=== PATIENT | female | born 1930 | race Caucasian/White ===

== ENCOUNTER 2020-02-14 21:24 | Inpatient (IN) ==
[2020-02-14] MEDS ORDERED: DEXTROSE 50% 50 ML VIAL IV PRN (21:52)
[2020-02-14] MEDS ORDERED: MAGNESIUM SULFATE 2 GM/50 ML BAG IV PRN (21:52)
[2020-02-14] MEDS ORDERED: ONDANSETRON 4 MG/2 ML VIAL IV PRN (21:52)
[2020-02-14] MEDS ORDERED: MELATONIN 3 MG TABLET PO PRN (21:52)
[2020-02-14] MEDS ORDERED: HYDROmorphone 0.5 MG/0.5 ML SYRINGE IV PRN (21:52)
[2020-02-14] MEDS ORDERED: hydrALAZINE 20 MG/ML VIAL IV PRN (21:52)
[2020-02-14] MEDS ORDERED: METOPROLOL TARTRATE 5 MG/5 ML VIAL IV PRN (21:52)
[2020-02-14] MEDS ORDERED: ACETAMINOPHEN 650 MG/65 ML BOTTLE IV PRN (21:52)
[2020-02-14] MEDS ORDERED: POTASSIUM CHLORIDE 20 MEQ PACKET PO PRN (21:52)
[2020-02-14] MEDS ORDERED: ACETAMINOPHEN 325 MG TABLET PO PRN (21:52)
[2020-02-14] MEDS ORDERED: BISACODYL 10 MG SUPP.RECT PR PRN (21:52)
[2020-02-14] MEDS ORDERED: POLYETHYLENE GLYCOL 3350 17 GM PACKET PO PRN (21:52)
[2020-02-14] MEDS ORDERED: ONDANSETRON 4 MG ODT TABLET SL PRN (21:52)
[2020-02-14] MEDS ORDERED: DEXTROSE 31 GM ORAL.SUSP PO PRN (21:52)
--- NOTE | 2020-02-14 21:56 | Internal Med History&Physical ---
HPI History of Present Illness Patient information: Note initiated : 02/14/20 at 9:56 pm Service Date, if different from initiated Date: [] Patient: Fiorella Ardon a 89 y/o F admitted on for Fall. Chief Complaint: Fall/hip fracture History of present illness: Ms. Ardon is a 89 year old F with a history of CVA with right-sided hemiparesis and currently residing at [facility]. She also carries a history of DM type II/HTN/hypothyroidism. She sustained a ground-level non- syncopal fall last evening while she was transferring from wheelchair to recliner landing on the floor on the right side. She was subsequently evaluated at [facility]. Imaging revealed right hip fracture. Oorthopedic was consulted and requested transfer to [facility] for operative intervention. Patient was started on pain medications. She also found blood sugars over 300. On arrival patient appears confused, in significant pain and under effect of opioids. She however is hemodynamically stable. Denies chest pain, loss of consciousness however was unable to provide a detailed history prior to fall or precipitating events. Reviewed labs and imaging from [facility]. Review of systems 10 point review of system was performed and is negative except for ones cussed above [facility] Medical History (Updated 02/15/20 @ 08:02 by Christian Boland PA-C) Anxiety (Chronic) Blood in stool (Chronic) Cataracts, bilateral (Acute) 04/2006, 06/2006 Diabetes mellitus type II, controlled (Chronic) Dysuria (Chronic) Frequency of urination (Chronic) Hx-TIA (transient ischemic attack) (Acute) 11/2010 Hypertension (Chronic) Macular edema (Acute) Injection, Right eye 12/2015 Recurrent UTI (Chronic) Shaky (Chronic) Surgical History (Updated 08/22/16 @ 13:19 by Afua Rey, NARCISA) 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 H/O section (Acute) 07/1956, 11/1960, 11/1962 History of knee replacement procedure of right knee (Acute) 11/2010 History of mastectomy (Acute) Left Breast 08/1992 No pertinent past surgical history (Ruled-out) Status post placement of stent in right coronary artery (Acute) 04/2007 Family History (Updated 08/22/16 @ 13:20 by Afua Rey RN) Other Breast cancer HTN (hypertension) Social History smoking status: Never smoker alcohol intake frequency: does not drink substance use type: does not use seatbelt use: always MEDS/ALLERGIES Home Medications and Allergies Home Medications Medication Instructions Recorded Confirmed Type aspirin 81 mg tablet 81 mg PO QDAY 07/24/16 02/15/20 History blood sugar diagnostic 07/24/16 01/31/17 History blood-glucose meter 07/24/16 01/31/17 History insulin glargine 100 unit/mL See Rx Instructions SUB-Q QAM ml 07/24/16 02/15/20 History subcutaneous solution lancets 30 gauge 07/24/16 01/31/17 History levothyroxine 75 mcg tablet 75 mcg PO QDAY 07/24/16 02/15/20 History metoprolol tartrate 25 mg tablet 25 mg PO QDAY tab 07/24/16 02/15/20 History nitroglycerin 0.4 mg sublingual 0.4 mg SUBLINGUAL .COMPLEX PRN 07/24/16 02/15/20 History tablet potassium chloride 10 mEq 10 meq PO QDAY 07/24/16 02/15/20 History tablet,extended release conjugated estrogens 0.625 mg/gram 1 applic VAGINAL .COMPLEX #30 g 07/26/17 02/15/20 Rx vaginal cream Citracal-D3 Plus Heart Health 1 tab PO BID 02/15/20 02/15/20 History Milk of Magnesia 15 ml PO DAILY 02/15/20 02/15/20 History Thermotabs 1 tab PO DAILY 02/15/20 02/15/20 History alprazolam 0.25 mg PO BID 02/15/20 02/15/20 History calcitonin (salmon) See Rx Instructions .ROUTE .COMPLEX 02/15/20 02/15/20 History duloxetine 20 mg PO DAILY 02/15/20 02/15/20 History glipizide 2.5 mg PO DAILY 02/15/20 02/15/20 History lisinopril 5 mg PO DAILY 02/15/20 02/15/20 History Allergies Allergy/AdvReac Type Severity Reaction Status Date / Time Carbapenems Allergy Mild RASH/SWELLI Verified 02/15/20 01:33 NG Cephalosporins Allergy Mild RASH/SWELLI Verified 02/15/20 01:33 NG levofloxacin [From Levaquin] Allergy Mild Rash/Swelli Verified 02/15/20 01:33 ng metformin Allergy Mild Rash/Swelli Verified 02/15/20 01:33 ng morphine Allergy Mild RASH/SWELLI Verified 02/15/20 01:33 NG Penicillins Allergy Mild SWELLING/RA Verified 02/15/20 01:33 SH pioglitazone [From Actos] Allergy Mild Rash/Swelli Verified 02/15/20 01:33 ng Rosiglitazone Allergy Mild Rash/Swelli Verified 02/15/20 01:33 [From Avandamet] ng Sulfa (Sulfonamide Allergy Mild RASH/SWELLI Verified 02/15/20 01:33 Antibiotics) NG sulfamethoxazole Allergy Mild Rash/Swelli Verified 02/15/20 01:33 [From Bactrim] ng trimethoprim [From Bactrim] Allergy Mild Rash/Swelli Verified 02/15/20 01:33 ng EXAM Constitutional Exam: Drowsy and confused Head normocephalic Oral cavity moist No ear nose discharge Eye movement symmetrical Neck supple no lymphadenopathy Occasionally irregular rhythm Nonlabored breathing Nondistended nontender abdomen Right-sided weakness from prior CVA right lower extremity externally rotated and shortened , no clubbing or joint swelling Skin no suspicious lesion Psych drowsy Neuro could not be examined A/P Narrative A/P Narrative: * Right hip fracture-orthopedic consulted. Will undergo operative intervention. Management per orthopedics * Pain management will be as per orthopedics * DM type II continue basal prandial insulin/CC diet * History of hypertension restart lisinopril/beta-nae once systolic over 140 * hypothyroidism continue thyroxine * History of prior CVA with right hemiparesis continue aspirin * Anxiety disorder continue home dose alprazolam * Prophylaxis will be as per orthopedics * DNR Plan * Inpatient hospitalization * Orthopedic consult * Pre-existing medical condition management and home meds, to be started once able to take p.o. * PT OT/nutrition support * DVT prophylaxis per orthopedics Time Spent With Patient Time: Total time spent is greater than 50% in coordination of care (as documented) at patient's floor/unit and/or counseling patient:
[2020-02-15] MEDS: 0.9 % SODIUM CHLORIDE 10 ML SYRINGE IV SCH ×6 (01:33→21:21)
[2020-02-15] MEDS: 0.9 % SODIUM CHLORIDE 1,000 ML IV SCH ×2 (01:34→21:17)
[2020-02-15] MEDS: HYDROmorphone 0.5 MG/0.5 ML SYRINGE ONE ×2 (05:11→05:14)
[2020-02-15] MEDS ORDERED: HYDROmorphone 1 MG/ML SYRINGE ONE (07:30)
[2020-02-15] MEDS: HYDROmorphone 1 MG/ML SYRINGE IV PRN ×2 (07:31→17:54)
--- NOTE | 2020-02-15 08:03 | Orthopedic History & Physical ---
HPI History of Present Illness Patient information: Note initiated : 02/15/20 at 7:54 am Service Date, if different from initiated Date: [] Patient: Fiorella Ardon a 89 y/o F admitted on 02/15/20 for Fall. Chief Complaint: R hip pain History of present illness: Ms. Ardon is a 89 year old F who was brought to the ED last night s/p a fall with significant R hip pain and dysfunction. X-rays revealed a R femeral neck fracture. Ortho was consulted for definitive management. Pt was confused during history taking partly due to recent pain medication administration. Most hisotry gathered from chart and nursing. 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 H/O section (Acute) 07/1956, 11/1960, 11/1962 History of knee replacement procedure of right knee (Acute) 11/2010 History of mastectomy (Acute) Left Breast 08/1992 No pertinent past surgical history (Ruled-out) Status post placement of stent in right coronary artery (Acute) 04/2007 Family History (Updated 08/22/16 @ 13:20 by Afua Rey, NARCISA) Other Breast cancer HTN (hypertension) Social History smoking status: Never smoker alcohol intake frequency: does not drink substance use type: does not use seatbelt use: always MEDS/ALLERGIES Home Medications and Allergies Home Medications Medication Instructions Recorded Confirmed Type aspirin 81 mg tablet 81 mg PO QDAY 07/24/16 02/15/20 History blood sugar diagnostic 07/24/16 01/31/17 History blood-glucose meter 07/24/16 01/31/17 History insulin glargine 100 unit/mL See Rx Instructions SUB-Q QAM ml 07/24/16 02/15/20 History subcutaneous solution lancets 30 gauge 07/24/16 01/31/17 History levothyroxine 75 mcg tablet 75 mcg PO QDAY 07/24/16 02/15/20 History metoprolol tartrate 25 mg tablet 25 mg PO QDAY tab 07/24/16 02/15/20 History nitroglycerin 0.4 mg sublingual 0.4 mg SUBLINGUAL .COMPLEX PRN 07/24/16 02/15/20 History tablet potassium chloride 10 mEq 10 meq PO QDAY 07/24/16 02/15/20 History tablet,extended release conjugated estrogens 0.625 mg/gram 1 applic VAGINAL .COMPLEX #30 g 07/26/17 02/15/20 Rx vaginal cream Citracal-D3 Plus Heart Health 1 tab PO BID 02/15/20 02/15/20 History Milk of Magnesia 15 ml PO DAILY 02/15/20 02/15/20 History Thermotabs 1 tab PO DAILY 02/15/20 02/15/20 History alprazolam 0.25 mg PO BID 02/15/20 02/15/20 History calcitonin (salmon) See Rx Instructions .ROUTE .COMPLEX 02/15/20 02/15/20 History duloxetine 20 mg PO DAILY 02/15/20 02/15/20 History glipizide 2.5 mg PO DAILY 02/15/20 02/15/20 History lisinopril 5 mg PO DAILY 02/15/20 02/15/20 History Allergies Allergy/AdvReac Type Severity Reaction Status Date / Time Carbapenems Allergy Mild RASH/SWELLI Verified 02/15/20 01:33 NG Cephalosporins Allergy Mild RASH/SWELLI Verified 02/15/20 01:33 NG levofloxacin [From Levaquin] Allergy Mild Rash/Swelli Verified 02/15/20 01:33 ng metformin Allergy Mild Rash/Swelli Verified 02/15/20 01:33 ng morphine Allergy Mild RASH/SWELLI Verified 02/15/20 01:33 NG Penicillins Allergy Mild SWELLING/RA Verified 02/15/20 01:33 SH pioglitazone [From Actos] Allergy Mild Rash/Swelli Verified 02/15/20 01:33 ng Rosiglitazone Allergy Mild Rash/Swelli Verified 02/15/20 01:33 [From Avandamet] ng Sulfa (Sulfonamide Allergy Mild RASH/SWELLI Verified 02/15/20 01:33 Antibiotics) NG sulfamethoxazole Allergy Mild Rash/Swelli Verified 02/15/20 01:33 [From Bactrim] ng trimethoprim [From Bactrim] Allergy Mild Rash/Swelli Verified 02/15/20 01:33 ng Physical Examination Hip left: Gait: other (unable to walk due to contralaterl fx) Tenderness with palpation: none Pain with motion: no pain Full ROM: yes Strength: flexion: 5/5 Fracture right hip: Location of fracture: R femoral neck Appearance: normal (Heart: Regular; good capillary refill. Lungs Clear to ascultation.), swelling and other (shortened and IR) Compartments: soft Distal extremity neurovascularly intact: Yes Distal joint involvement: No Other injury: muscle injury: no, tendon injury: no, ligament injury: no, vascular injury: no and nerve injury: no Results Labs Result Diagrams: 02/15/20 05:30 02/15/20 05:30 Labs: All other labs normal. x-rays 3 view hip. displaced femoral neck fx A/P Assessment and plan (1) Fracture of femoral neck, right, closed: Status: Acute Comment: Patient has elected to proceed with a R zee-hip arthroplasty to be preformed by Dr. Cyr. I advised pt of risks including bleeding, infection, injuring nerves, vessels other structures in the area, anesthetic risks. Pt is willing to proceed. Time Spent With Patient Time: Total time spent is greater than 50% in coordination of care (as documented) at patient's floor/unit and/or counseling patient:
[2020-02-15] MEDS: INSULIN LISPRO 1 UNIT/0.01 ML UNIT SQ SCH ×4 (08:16→21:45)
[2020-02-15] MEDS: DOCUSATE SODIUM 100 MG CAPSULE PO SCH ×2 (08:19→21:18)
[2020-02-15] MEDS: MULTIVIT,THER IRON,CA,FA & MIN 1 TABLET PO SCH (08:20)
[2020-02-15] MEDS ORDERED: SCOPOLAMINE 1 PATCH PATCH TOPICAL PRN (08:30)
[2020-02-15] MEDS ORDERED: IPRATROPIUM/ALBUTEROL 3 ML AMPUL.NEB NEB PRN ×2 (08:30→10:02)
[2020-02-15 08:40] LABS: Hematocrit 40.6 % (34.1-44.9); Mean Cell Volume 82.7 fL (80.0-100.0); Mean Corpuscular HGB Conc 34.5 g/dL (31.0-36.0); Mean Platelet Volume 8.9 fL (7.4-10.4); Platelet Count 388 K/mcL (140-440); RBC 4.91 M/mcL (3.59-5.38); Red Cell Distribution Width 12.7 % (11.5-14.5); WBC 10.2 K/mcL (4.50-11.00)
[2020-02-15] MEDS ORDERED: VANCOMYCIN 1,000 MG in 0.9 % SODIUM CHLORIDE 250 ML IV SCH (08:45)
[2020-02-15 08:48] LABS: INR 0.9 (0.9-1.1); Prothrombin Time 12.5 sec (11.9-14.5)
[2020-02-15] MEDS ORDERED: TRANEXAMIC ACID 1,000 MG/10 ML VIAL IV ONE (08:55)
[2020-02-15] MEDS ORDERED: GLYCOPYRROLATE 0.2 MG/ML VIAL IV ONE (08:55)
[2020-02-15] MEDS ORDERED: PHENYLEPHRINE 10 MG/ML VIAL IV ONE (08:55)
[2020-02-15] MEDS ORDERED: ONDANSETRON 4 MG/2 ML VIAL IV ONE (08:55)
[2020-02-15] MEDS ORDERED: DEXAMETHASONE 10 MG/ML VIAL IV ONE (08:55)
[2020-02-15] MEDS ORDERED: PROPOFOL 200 MG/20 ML VIAL IV ONE (08:55)
[2020-02-15] MEDS ORDERED: EPINEPHrine 1 MG/ML ML IV ONE (08:55)
[2020-02-15] MEDS ORDERED: KETAMINE 100 MG/ML ML IV ONE (08:55)
[2020-02-15] MEDS ORDERED: LIDOCAINE HCL/PF 100 MG/5 ML SYRINGE IV ONE (08:55)
[2020-02-15] MEDS ORDERED: sitaGLIPtin 100 MG TABLET PO SCH (09:00)
[2020-02-15 09:43] LABS: Band Neutrophils % 1 % (0-10); Lymphocytes % 14 % (15-49); Monocytes % (Manual) 3 % (1-12); Platelet Estimate NORMAL (NORMAL); RBC Morphology NORMAL (NORMAL); Reactive Lymphocytes 1 % (0-2); Segmented Neutrophils % 81 % (38-78)
[2020-02-15] MEDS ORDERED: FLUMAZENIL 0.1 MG/ML ML IV PRN (10:02)
[2020-02-15] MEDS ORDERED: fentaNYL 100 MCG/2 ML VIAL IV PRN (10:02)
[2020-02-15] MEDS ORDERED: LABETALOL 5 MG/ML ML IV PRN (10:02)
[2020-02-15] MEDS ORDERED: METOPROLOL TARTRATE 5 MG/5 ML VIAL IV PRN (10:02)
[2020-02-15] MEDS ORDERED: METHOCARBAMOL 1,000 MG/10 ML VIAL IV PRN (10:02)
[2020-02-15] MEDS ORDERED: LACTATED RINGERS 250 ML IV PRN (10:02)
[2020-02-15] MEDS ORDERED: ACETAMINOPHEN 750 MG/75 ML BOTTLE IV ONE (10:02)
[2020-02-15] MEDS ORDERED: NALOXONE HCL 0.4 MG/ML VIAL IV PRN (10:02)
[2020-02-15] MEDS ORDERED: LACTATED RINGERS 1,000 ML IV SCH (10:15)
[2020-02-15] MEDS ORDERED: MAGNESIUM HYDROXIDE 30 ML ORAL.SUSP PO PRN (10:15)
[2020-02-15] MEDS ORDERED: TRANEXAMIC ACID 1,000 MG/10 ML VIAL IV SCH (10:15)
[2020-02-15] MEDS ORDERED: BISACODYL 10 MG SUPP.RECT PR PRN (10:15)
[2020-02-15] MEDS ORDERED: FLEETS ADULT ENEMA PR PRN (10:15)
[2020-02-15] MEDS ORDERED: BENZOCAINE/MENTHOL 1 LOZENGE PO PRN (10:15)
--- NOTE | 2020-02-15 10:15 | Brief Operative Note ---
Brief Operative Note Date of procedure: 02/15/20 Pre-op diagnosis: Right displaced mid cervical femoral neck fracture Post-op diagnosis: same Procedure: Open treatment of right femoral neck fracture with prosthetic hemiarthroplasty Grafts/Implants: Yes (Depuy summit basic cementless 5 stem, +5 spacer, 43 unipolar head) Anesthesia: GETA Findings: displaced femoral neck fracture Complications: none Surgeon: Bayron Cyr Senior Administrative Services Officer: Christian Boland Estimated blood loss (cc): 150 Specimens Removed/Pathology: none sent Condition: stable Disposition: PACU
[2020-02-15] MEDS ORDERED: ALBUMIN HUMAN 25 GM/100 ML BAG IV ONE (10:26)
[2020-02-15 12:18] LABS: ALT/SGPT 14 U/l (0-40); AST/SGOT 16 U/l (0-37); Albumin 3.5 gm/dL (3.2-5.2); Albumin/Globulin Ratio 1.6 (1.0-2.3); Alkaline Phosphatase 94 U/L (39-117); Bilirubin,Total 0.5 mg/dL (0.0-1.0); Blood Urea Nitrogen 6 mg/dl (8-23); Calcium 8.1 mg/dl (8.6-10.4); Carbon Dioxide 23 mmol/L (22-30); Globulin 2.2 gm/dL (2.2-3.7); Glomerular Filtration Rate 87; Glucose 257 mg/dL (70-105)
--- NOTE | 2020-02-15 12:26 | XRay Report ---
CLINICAL INFORMATION: Post-op Total Hip COMPARISON: None. FINDINGS: Right hip prostheses is anatomically aligned. Soft tissue swelling gas within the surgical site seen as expected. Moderate degenerative change in both SI and left hip joints. No osseous abnormality. 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
[2020-02-15 12:48] LABS: Chloride 91 mmol/L (96-108)
[2020-02-15] MEDS ORDERED: sitaGLIPtin 50 MG TABLET PO SCH (13:00)
[2020-02-15] MEDS ORDERED: POTASSIUM CHLORIDE 40 MEQ in DEXTROSE 5% IN WATER 500 ML IV ONE (13:30)
[2020-02-15] MEDS ORDERED: WARFARIN 2 MG TABLET PO ONE (14:00)
[2020-02-15] MEDS ORDERED: sitaGLIPtin 50 MG TABLET PO ONE (16:00)
[2020-02-15] MEDS: oxyCODONE/APAP 5/325MG TABLET PO PRN (21:17)
[2020-02-15] MEDS: SENNOSIDES/DOCUSATE SODIUM 1 TAB TABLET PO SCH (21:18)
[2020-02-15] MEDS: CALCIUM W/VIT D3 500 MG TABLET PO SCH (21:18)
[2020-02-15] MEDS: SENNOSIDES 1 TABLET PO SCH (21:20)
[2020-02-15] MEDS: ALPRAZolam 0.25 MG TABLET PO SCH (21:26)
[2020-02-16] MEDS: oxyCODONE/APAP 5/325MG TABLET PO PRN ×4 (02:39→19:17)
[2020-02-16] MEDS: HYDROmorphone 1 MG/ML SYRINGE IV PRN ×2 (04:22→20:41)
[2020-02-16] MEDS: 0.9 % SODIUM CHLORIDE 10 ML SYRINGE IV SCH ×6 (04:52→20:41)
[2020-02-16 06:51] LABS: Hematocrit 33.8 % (34.1-44.9); Hemoglobin 11.2 g/dL (11.2-15.7); Mean Cell Volume 85.8 fL (80.0-100.0); Mean Corpuscular HGB Conc 33.1 g/dL (31.0-36.0); Mean Platelet Volume 9.4 fL (7.4-10.4); Platelet Count 351 K/mcL (140-440); RBC 3.94 M/mcL (3.59-5.38)
[2020-02-16 07:59] LABS: ALT/SGPT 13 U/l (0-40); AST/SGOT 19 U/l (0-37); Albumin 3.7 gm/dL (3.2-5.2); Albumin/Globulin Ratio 1.7 (1.0-2.3); Alkaline Phosphatase 77 U/L (39-117); Bilirubin,Direct 0.2 mg/dL (0.0-0.3); Bilirubin,Total 0.8 mg/dL (0.0-1.0); Blood Urea Nitrogen 15 mg/dl (8-23); Calcium 8.9 mg/dl (8.6-10.4); Carbon Dioxide 21 mmol/L (22-30); Chloride 90 mmol/L (96-108); Globulin 2.2 gm/dL (2.2-3.7); Glomerular Filtration Rate 66; Glucose 309 mg/dL (70-105); Lactate Dehydrogenase 203 U/L (94-250); Phosphorous 3.2 mg/dL (2.7-4.5); Triglycerides 80 mg/dl (<150); Uric Acid 2.9 mg/dL (2.5-8.0)
[2020-02-16 08:00] LABS: INR 1.2 (0.9-1.1); Prothrombin Time 15.7 sec (11.9-14.5)
[2020-02-16] MEDS: LEVOTHYROXINE 75 MCG TABLET PO SCH (08:04)
[2020-02-16] MEDS: INSULIN LISPRO 1 UNIT/0.01 ML UNIT SQ SCH ×4 (08:04→20:40)
[2020-02-16] MEDS: POTASSIUM CHLORIDE 10 MEQ TABLET PO SCH (08:05)
[2020-02-16] MEDS: ALPRAZolam 0.25 MG TABLET PO SCH ×2 (08:05→20:40)
--- NOTE | 2020-02-16 08:27 | Operative Note ---
DATE OF OPERATION: 02/15/2020 PREOPERATIVE DIAGNOSIS: Right displaced midcervical femoral neck fracture. POSTOPERATIVE DIAGNOSIS: Right displaced midcervical femoral neck fracture. PROCEDURE PERFORMED: Open treatment of right femoral neck fracture with prosthetic hemiarthroplasty placing a DePuy Alicia basic cementless size 5 femoral stem, a +5 spacer with a 43 mm unipolar head. SURGEON: Bayron Cyr MD GENERAL ACCOUNTING MANAGER: Bulmaro Boland PA-C. This provider's expertise and technical skill were required throughout the case. The PA assisted with preoperative coordination, intraoperative retraction, wound closure, dressing and splint application, as well as postoperative documentation and care coordination. ANESTHESIA: General. DRAINS: None. SPECIMENS: Femoral head which was discarded. BLOOD LOSS: 150 mL COMPLICATIONS: None. POSTOPERATIVE CONDITION: Stable. INDICATIONS FOR SURGERY: This is an 89-year-old female who fell last night injuring her right hip. She was unable to bear weight. She was taken to the Emergency Department in [place]. X-rays taken showed a displaced femoral neck fracture and she was transferred down for definitive orthopedic treatment. FINDINGS AT SURGERY: She had a displaced femoral neck fracture. Post implantation showed stable hip throughout range of motion. There was slight limb lengthening. PROCEDURE IN DETAIL: The patient had been seen preoperatively and informed consent had been obtained after discussion of risks and benefits of surgery. Risks including, but not limited to, bleeding, possibly requiring transfusion; infection, possibly requiring implant removal and prolonged IV antibiotics; injury to nerves, blood vessels, other surrounding structures; anesthetic risks, dislocation; fracture; DVT and pulmonary embolus risks; and the possibility of needing further revision surgery. She understood and wished to proceed. Correct operative site was marked in preoperative holding and the patient was taken to the operating room. General anesthesia induced. She was carefully positioned in the left lateral decubitus position and pressure points carefully padded. Right hip and lower extremity were then carefully prepped and draped in normal sterile fashion. A timeout was performed verifying patient name, operative site, and plan. Ioban was used to cover all skin surfaces. A standard posterior approach incision was made with a scalpel through skin and subcutaneous tissue. Hemostasis was obtained with Bovie cautery. We continued down on to the IT band. This was incised in line with the skin incision. A Charnley retractor was placed and then the short external rotators were exposed and released off the posterior femur. A T capsular incision was made and the femoral head was visualized. We made a preliminary neck cut with the oscillating saw and then a corkscrew was placed into the femoral head. This did fragment upon removal, making sizing somewhat difficult. We trialled a 44. This seemed slightly tight, so we did clean the acetabulum of any bone fragments and expose the proximal femur. Box osteotome was used to make entry and then a hand held awl to identify canal trajectory. We then used a lateralizer and then started broaching up. We went up to a size 5. Initially, the stem sat up higher and we attempted to reduce and it was too tight, so we did have to work backing down a size and then calcar planed down and then able to work the broach back to our new neck cut. We then trialled a -3. This reduced easily and dislocated too easily, so we went up to a 0. This had much better stability. However, we still were able to dislocate in the flexed internal rotation position. We removed the broach and chose to go with a 5 stem, a +5 spacer and a 43 head ball. The femoral canal was irrigated with IrriSept while implants were opened. After a minute we pulse lavaged with saline and then the stem was impacted. This did seat down on her neck, so we then placed the head construct onto the stem after carefully cleaning and drying the stem. This was impacted with several blows of the mallet and then the hip was reduced. This had a nice tension flexion up to 90 and internal rotation could not dislocate the hip. We checked our leg length and there was slight limb lengthening. We then irrigated IrriSept again, after a minute pulse lavage with saline. The posterior capsule was closed with a #5 FiberWire several [id number] stitches. We then irrigated IrriSept again, after a minute pulse lavaged with saline and then the IT band was closed with running #1 Vicryl with a single [id number] in the middle. Final IrriSept irrigation was done, after a minute final pulse and 2-0 Monocryl was used for subcutaneous and sotero for skin. Xeroform sterile dressings were applied. Her leg was placed in abductor wedge and patient was turned supine, awakened, extubated, and transferred to recovery in stable condition. BJB:timbo Job ID: [id number] Doc ID: [id number] Bayron Cyr MD
[2020-02-16 08:41] LABS: Lymphocytes % 10 % (15-49); Monocytes % (Manual) 10 % (1-12); Platelet Estimate NORMAL (NORMAL); RBC Morphology NORMAL (NORMAL); Segmented Neutrophils % 80 % (38-78)
[2020-02-16] MEDS ORDERED: VANCOMYCIN 1,000 MG in 0.9 % SODIUM CHLORIDE 250 ML IV SCH (09:00)
--- NOTE | 2020-02-16 10:30 | Internal Med Progress Note ---
SUBJECTIVE Subjective Patient information: Note initiated : 02/16/20 at 10:26 am Service Date, if different from initiated Date: [] Patient: Fiorella Ardon 89 y/o F admitted on 02/15/20 for Fall. Chief Complaint: Ms. Ardon is a 89 year old F with a history of CVA with right-sided hemiparesis and currently residing at [facility]. She also carries a history of DM type II/HTN/hypothyroidism. She sustained a ground-level non- syncopal fall last evening while she was transferring from wheelchair to recliner landing on the floor on the right side. She was subsequently evaluated at [facility]. Imaging revealed right hip fracture. Oorthopedic was consulted and requested transfer to [facility] for operative intervention. Patient was started on pain medications. She also found blood sugars over 300. On arrival patient appears confused, in significant pain and under effect of opioids. She however is hemodynamically stable. Denies chest pain, loss of co nsciousness however was unable to provide a detailed history prior to fall or precipitating events. Reviewed labs and imaging from [facility]. 02/15-patient postop day 1. No overnight events. Remains very anxious. Sodium down to 124. 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 Await urine and serum osmolality. Check for hourly sodium start salt tabs/free water restriction. Continue postop care per orthopedics. Potassium at 4.9, blood sugar 309, increase glargine by 25%. Constitutional Vitals: Vital Signs Temp Pulse Resp BP Pulse Ox 99.6 F H 98 H 18 166/74 92 02/16/20 08:00 02/16/20 08:00 02/16/20 08:00 02/16/20 08:00 02/16/20 08:00 Period Temp Pulse Resp BP Sys/Ta Pulse Ox Last 24 Hr 97.1 F-99.6 F 69-98 11-24 112-189/45-90 89-100 Intake and Output 02/15/20 02/16/20 02/16/20 21:59 05:59 13:59 Intake Total 2306 1600 Output Total 1825 350 Balance 481 1250 Weight 49.668 kg Very anxious Nonlabored breathing Minimal postop pain Intake & Output: Intake & Output 02/15/20 02/16/20 02/16/20 21:59 05:59 13:59 Intake Total 2306 1600 Output Total 1825 350 Balance 481 1250 Weight 49.668 kg Intake: IV 1506 Sodium Chloride 0.9% 1,000 ml @ 986 50 mls/hr IV .Q20H [facility] Rx#: [id number] Potassium Chloride 40 Meq In 520 Dextrose 5% in Water 500 ml @ 130 mls/hr IV ONCE ONE Rx#: [id number] Oral 800 1600 Output: Urine Catheter Amount 1825 350 Other: Meal Dinner Percent of Meal Consumed 75% Feeding Ability Assist with Tray Set Up Urine Appearance Clear Uretheral (Cain) Clear Urine Color Pale Pale Bright Yellow Uretheral (Cain) Pale Urine Odor Normal Normal Uretheral (Cain) Normal OBJ DATA Labs CBC & Chem 7: 02/16/20 05:15 02/16/20 05:15 Labs: Abnormal Lab Results 02/16/20 02/16/20 02/16/20 05:15 05:15 05:15 WBC 12.0 H Hct 33.8 L Seg Neutrophils % 80 H Lymphocytes % 10 L PT 15.7 H INR 1.2 H Sodium 124 L Potassium Chloride 90 L Carbon Dioxide 21 L BUN Creatinine Glucose 309 H Calcium Total Protein 02/15/20 02/15/20 10:40 05:30 WBC Hct Seg Neutrophils % 81 H Lymphocytes % 14 L PT INR Sodium 129 L Potassium 2.9 L* Chloride 91 L Carbon Dioxide BUN 6 L Creatinine 0.5 L Glucose 257 H Calcium 8.1 L Total Protein 5.7 L Meds: Medications Acetaminophen (Tylenol) 650 mg PO Q4-6HP PRN; Protocol PRN Reason: Per Pain Protocol/Fever > 101 Alprazolam (Xanax) 0.25 mg PO BID [facility] Last Admin: 02/16/20 08:05 Dose: 0.25 mg Documented by: Aspirin (Aspirin) 81 mg PO DAILY [facility] Bisacodyl (Dulcolax) 10 mg CA Q2-3DAYS PRN PRN Reason: Constipation Bisacodyl (Dulcolax) 10 mg CA Q2-3DAYS PRN PRN Reason: Constipation Calcium/Vitamin D (Calcium W/Vit D3) 500 mg PO BID [facility] Last Admin: 02/15/20 21:18 Dose: 500 mg Documented by: Dextrose (Dextrose 50%) 0 ml IV UD PRN PRN Reason: Hypoglycemia Diagnostic Test (Pha) (Accu-Chek) 1 each FS ACHS [facility] Last Admin: 02/16/20 08:04 Dose: 1 each Documented by: Docusate Sodium (Colace) 100 mg PO BID [facility] Last Admin: 02/15/20 21:18 Dose: 100 mg Documented by: Duloxetine HCl (Cymbalta) 20 mg PO DAILY [facility] Glucose (Insta-Glucose) 15 gm PO PRN PRN PRN Reason: Hypoglycemia Hydralazine HCl (Apresoline) 10 mg IV Q4-6HP PRN PRN Reason: Hypertension Hydromorphone HCl (Dilaudid) 0 mg IV Q2HP PRN; Protocol PRN Reason: Per Pain Protocol Last Admin: 02/16/20 04:22 Dose: 1 mg Documented by: Sodium Chloride (Sodium Chloride 0.9%) 1,000 mls @ 50 mls/hr IV .Q20H [facility] Stop: 02/17/20 09:59 Last Admin: 02/15/20 21:17 Dose: 50 mls/hr Documented by: Acetaminophen (Ofirmev) 650 mg in 65 mls @ 130 mls/hr IV Q6HP PRN; Protocol PRN Reason: Per Pain Protocol/Fever > 101 Magnesium Sulfate (Magnesium Sulfate) 2 gm in 50 mls @ 50 mls/hr IV UD PRN PRN Reason: MG = or < 1.7 Insulin Glargine (Lantus) 12 unit SQ DAILY [facility] Insulin Human Lispro (Humalog) 0 unit SQ ACHS [facility]; Protocol Last Admin: 02/16/20 08:04 Dose: 4 units Documented by: Iron Carb/Multivit/Control Clerk/Folic Acid (Multivitamin W/Minerals) 1 tab PO DAILY [facility] Last Admin: 02/15/20 08:20 Dose: Not Given Documented by: Levothyroxine Sodium (Synthroid) 75 mcg PO ACB [facility] Last Admin: 02/16/20 08:04 Dose: 75 mcg Documented by: Lisinopril (Zestril) 5 mg PO DAILY [facility] Magnesium Hydroxide (Milk Of Magnesia) 30 ml PO BIDP PRN PRN Reason: Constipation Magnesium Hydroxide (Milk Of Magnesia) 15 ml PO DAILY [facility] Melatonin (Melatonin 3mg Tablet) 3 mg PO HSP PRN PRN Reason: Insomnia Last Admin: 02/15/20 21:18 Dose: 3 mg Documented by: Metoprolol Succinate (Toprol Xl) 25 mg PO DAILY [facility] Metoprolol Tartrate (Lopressor) 5 mg IV Q5M PRN PRN Reason: Heart Rate > 140 bpm Ondansetron HCl (Zofran Odt) 4 mg SL Q4-6HP PRN; Protocol PRN Reason: Nausea And Vomiting Ondansetron HCl (Zofran) 4 mg IV Q4-6HP PRN; Protocol PRN Reason: Nausea And Vomiting Last Admin: 02/15/20 08:03 Dose: 4 mg Documented by: Oxycodone/Acetaminophen (Percocet 5-325 Mg) 0 tab PO Q4HP PRN; Protocol PRN Reason: Per Pain Protocol Last Admin: 02/16/20 08:05 Dose: 2 tab Documented by: Polyethylene Glycol (Miralax) 17 gm PO DAILYP PRN PRN Reason: Constipation Potassium Chloride (Klor-Con) 40 meq PO DAILYP PRN PRN Reason: K+ < 3.5 Last Admin: 02/15/20 13:20 Dose: 40 meq Documented by: [facility] Admin: 02/16/20 08:05 Dose: 10 meq Documented by: Senna (Senokot) 2 tab PO [facility] Last Admin: 02/15/20 21:20 Dose: 2 tab Documented by: Senna/Docusate Sodium (Senna Plus Tablet) 1 tab PO [facility] Last Admin: 02/15/20 21:18 Dose: 1 tab Documented by: Sitagliptin Phosphate (Januvia) 50 mg PO DAILY [facility] Sodium Biphosphate/Sodium Phosphate (Fleets Adult) 1 dose CA Q3-4DAYS PRN PRN Reason: Constipation Sodium Chloride (Saline Flush) 10 ml IV Q8 [facility] Last Admin: 02/16/20 04:52 Dose: Not Given Documented by: Sodium Chloride (Saline Flush) 10 ml IV Q8 [facility] Last Admin: 02/16/20 05:30 Dose: Not Given Documented by: Sodium Chloride (Sodium Chloride) 2 gm PO TID [facility] Throat Lozenges (Cepacol) 1 lozenge PO PRN PRN PRN Reason: Sore Throat Last Admin: 02/16/20 01:59 Dose: 1 lozenge Documented by: Warfarin Sodium (Coumadin Per Pharmacy) 1 order PO [facility] Warfarin Sodium (Coumadin) 3 mg PO ONCE@1400 ONE Stop: 02/16/20 14:01 A/P Assessment and plan (1) Fracture of femoral neck, right, closed: Status: Acute Comment: Patient has elected to proceed with a R zee-hip arthroplasty to be preformed by Dr. Cyr. I advised pt of risks including bleeding, infection, injuring nerves, vessels other structures in the area, anesthetic risks. Pt is willing to proceed. Narrative A/P Narrative: * Right hip fracture-postop day 1. Managed per orthopedics. * Euvolemic hyponatremia secondary to pain induced ADH release. Continue free water restriction/salt tabs. 4 hourly sodium checks * Pain management continue per orthopedics * DM type II continue basal prandial insulin/CC diet, increase basal insulin by 25% * History of hypertension restart lisinopril/beta-nae once systolic over 140 * hypothyroidism continue thyroxine * History of prior CVA with right hemiparesis continue aspirin * Anxiety disorder continue home dose alprazolam * Prophylaxis on Coumadin per orthopedics. * DNR Plan * Postoperative care per orthopedics * Uptitrate basal insulin by 25% * Freewater/salt tabs/4 hours sodium checks * Pre-existing medical condition management on home meds * PT OT/nutrition support * DVT prophylaxis on Coumadin per orthopedics * Discharge planning Time Spent With Patient Time: Total time spent is greater than 50% in coordination of care (as documented) at patient's floor/unit and/or counseling patient: QUALITY Stroke Symptom Onset Unknown: No VTE Deep Vein Thrombosis/Pulmonary Embolism Present on Admission: No
[2020-02-16] MEDS: INSULIN GLARGINE, HUMAN 1 UNIT/0.01 ML SQ SCH (10:57)
[2020-02-16] MEDS: SODIUM CHLORIDE 1 GM TABLET PO SCH ×3 (10:58→20:40)
[2020-02-16] MEDS: ASPIRIN 81 MG TAB.CHEW PO SCH (12:19)
[2020-02-16] MEDS: DULoxetine 20 MG CAPSULE PO SCH (12:20)
[2020-02-16] MEDS: DOCUSATE SODIUM 100 MG CAPSULE PO SCH ×2 (12:20→20:40)
[2020-02-16] MEDS: CALCIUM W/VIT D3 500 MG TABLET PO SCH ×2 (12:20→20:40)
[2020-02-16] MEDS: sitaGLIPtin 50 MG TABLET PO SCH (12:20)
[2020-02-16] MEDS: MULTIVIT,THER IRON,CA,FA & MIN 1 TABLET PO SCH (12:21)
[2020-02-16] MEDS: LISINOPRIL 5 MG TABLET PO SCH (12:21)
[2020-02-16] MEDS: MAGNESIUM HYDROXIDE 30 ML ORAL.SUSP PO SCH (12:21)
[2020-02-16] MEDS: METOPROLOL SUCCINATE 25 MG TAB.XL.24H PO SCH (12:21)
[2020-02-16] MEDS ORDERED: WARFARIN 3 MG TABLET PO ONE (14:00)
[2020-02-16] MEDS: 0.9 % SODIUM CHLORIDE 1,000 ML IV SCH ×2 (14:03→16:22)
--- NOTE | 2020-02-16 14:04 | Internal Med Progress Note ---
SUBJECTIVE Subjective Patient information: Note initiated : 02/16/20 at 1:59 pm Service Date, if different from initiated Date: [] Patient: Fiorella Ardon 89 y/o F admitted on 02/15/20 for Fall. Chief Complaint: [] Interval history: [facility] Complaint: Ms. Ardon is a 89 year old F with a history of CVA with right-sided hemiparesis and currently residing at [facility]. She also carries a history of DM type II/HTN/hypothyroidism. She sustained a ground-level non- syncopal fall last evening while she was transferring from wheelchair to recliner landing on the floor on the right side. She was subsequently evaluated at [facility]. Imaging revealed right hip fracture. Oorthopedic was consulted and requested transfer to [facility] for operative intervention. Patient was started on pain medications. She also found blood sugars over 300. On arrival patient appears confused, in significant pain and under effect of opioids. She however is hemodynamically stable. Denies chest pain, loss of consciousness however was unable to provide a detailed history prior to fall or precipitating events. Reviewed labs and imaging from [facility]. 02/15-patient postop day 1. No overnight events. Remains very anxious. Sodium down to 124. 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 Await urine and serum osmolality. Check for hourly sodium start salt tabs/free water restriction. Continue postop care per orthopedics. Potassium at 4.9, blood sugar 309, increase glargine by 25%. 02/16 Constitutional Vitals: Vital Signs Temp Pulse Resp BP Pulse Ox 98.9 F 83 18 99/54 95 02/16/20 12:00 02/16/20 12:00 02/16/20 12:00 02/16/20 12:00 02/16/20 12:00 Period Temp Pulse Resp BP Sys/Ta Pulse Ox Last 24 Hr 98.2 F-99.6 F 71-98 16-18 99-166/54-74 92-99 Intake and Output 02/15/20 02/16/20 02/16/20 21:59 05:59 13:59 Intake Total 2306 1600 Output Total 1825 350 Balance 481 1250 Weight 49.668 kg Intake & Output: Intake & Output 02/15/20 02/16/20 02/16/20 21:59 05:59 13:59 Intake Total 2306 1600 Output Total 1825 350 Balance 481 1250 Weight 49.668 kg Intake: IV 1506 Sodium Chloride 0.9% 1,000 ml @ 986 50 mls/hr IV .Q20H [facility] Rx#: [id number] Potassium Chloride 40 Meq In 520 Dextrose 5% in Water 500 ml @ 130 mls/hr IV ONCE ONE Rx#: [id number] Oral 800 1600 Output: Urine Catheter Amount 1825 350 Other: Meal Dinner Percent of Meal Consumed 75% Feeding Ability Assist with Tray Set Up Urine Appearance Clear Uretheral (Cain) Clear Urine Color Pale Pale Bright Yellow Uretheral (Cain) Pale Urine Odor Normal Normal Uretheral (Cain) Normal Exam: General: Alert, Awake, No acute Distress Eyes/N/T: EOMI, Head/Neck: neck supple, CV: RRR, No murmurs, Pulm: Clear b/l, no wheezing/rhonchi/rales Abd: soft, nontender, +BS x4 Ext: no clubbing/cyanosis/edema, right hip in dressings Neuro: Alert, no focal deficits, moves all extremities, Skin: warm/dry OBJ DATA Labs CBC & Chem 7: 02/16/20 05:15 02/16/20 11:58 Labs: Abnormal Lab Results 02/16/20 02/16/20 02/16/20 11:58 05:15 05:15 WBC Hct Seg Neutrophils % Lymphocytes % PT 15.7 H INR 1.2 H Sodium 124 L Potassium Chloride Carbon Dioxide BUN Creatinine Glucose Osmolality 275 L Calcium Total Protein 02/16/20 02/16/20 02/15/20 05:15 05:15 10:40 WBC 12.0 H Hct 33.8 L Seg Neutrophils % 80 H Lymphocytes % 10 L PT INR Sodium 124 L 129 L Potassium 2.9 L* Chloride 90 L 91 L Carbon Dioxide 21 L BUN 6 L Creatinine 0.5 L Glucose 309 H 257 H Osmolality Calcium 8.1 L Total Protein 5.7 L 02/15/20 05:30 WBC Hct Seg Neutrophils % 81 H Lymphocytes % 14 L PT INR Sodium Potassium Chloride Carbon Dioxide BUN Creatinine Glucose Osmolality Calcium Total Protein Meds: Medications Acetaminophen (Tylenol) 650 mg PO Q4-6HP PRN; Protocol PRN Reason: Per Pain Protocol/Fever > 101 Alprazolam (Xanax) 0.25 mg PO BID [facility] Last Admin: 02/16/20 08:05 Dose: 0.25 mg Documented by: Aspirin (Aspirin) 81 mg PO DAILY [facility] Last Admin: 02/16/20 12:19 Dose: Not Given Documented by: Bisacodyl (Dulcolax) 10 mg MN Q2-3DAYS PRN PRN Reason: Constipation Bisacodyl (Dulcolax) 10 mg MN Q2-3DAYS PRN PRN Reason: Constipation Calcium/Vitamin D (Calcium W/Vit D3) 500 mg PO BID [facility] Last Admin: 02/16/20 12:20 Dose: Not Given Documented by: Dextrose (Dextrose 50%) 0 ml IV UD PRN PRN Reason: Hypoglycemia Diagnostic Test (Pha) (Accu-Chek) 1 each FS ACHS [facility] Last Admin: 02/16/20 12:17 Dose: 1 each Documented by: Docusate Sodium (Colace) 100 mg PO BID [facility] Last Admin: 02/16/20 12:20 Dose: Not Given Documented by: Duloxetine HCl (Cymbalta) 20 mg PO DAILY [facility] Last Admin: 02/16/20 12:20 Dose: Not Given Documented by: Glucose (Insta-Glucose) 15 gm PO PRN PRN PRN Reason: Hypoglycemia Hydralazine HCl (Apresoline) 10 mg IV Q4-6HP PRN PRN Reason: Hypertension Hydromorphone HCl (Dilaudid) 0 mg IV Q2HP PRN; Protocol PRN Reason: Per Pain Protocol Last Admin: 02/16/20 04:22 Dose: 1 mg Documented by: Sodium Chloride (Sodium Chloride 0.9%) 1,000 mls @ 50 mls/hr IV .Q20H [facility] Stop: 02/17/20 09:59 Last Admin: 02/15/20 21:17 Dose: 50 mls/hr Documented by: Acetaminophen (Ofirmev) 650 mg in 65 mls @ 130 mls/hr IV Q6HP PRN; Protocol PRN Reason: Per Pain Protocol/Fever > 101 Magnesium Sulfate (Magnesium Sulfate) 2 gm in 50 mls @ 50 mls/hr IV UD PRN PRN Reason: MG = or < 1.7 Last Admin: 02/16/20 12:17 Dose: 50 mls/hr Documented by: Insulin Glargine (Lantus) 12 unit SQ DAILY [facility] Last Admin: 02/16/20 10:57 Dose: 12 unit Documented by: Insulin Human Lispro (Humalog) 0 unit SQ [facility]; Protocol Last Admin: 02/16/20 12:19 Dose: 2 units Documented by: Iron Carb/Multivit/[facility]/Folic Acid (Multivitamin W/Minerals) 1 tab PO DAILY [facility] Last Admin: 02/16/20 12:21 Dose: Not Given Documented by: Levothyroxine Sodium (Synthroid) 75 mcg PO ACB [facility] Last Admin: 02/16/20 08:04 Dose: 75 mcg Documented by: Lisinopril (Zestril) 5 mg PO DAILY [facility] Last Admin: 02/16/20 12:21 Dose: Not Given Documented by: Magnesium Hydroxide (Milk Of Magnesia) 30 ml PO BIDP PRN PRN Reason: Constipation Magnesium Hydroxide (Milk Of Magnesia) 15 ml PO DAILY [facility] Last Admin: 02/16/20 12:21 Dose: Not Given Documented by: Melatonin (Melatonin 3mg Tablet) 3 mg PO HSP PRN PRN Reason: Insomnia Last Admin: 02/15/20 21:18 Dose: 3 mg Documented by: Metoprolol Succinate (Toprol Xl) 25 mg PO DAILY [facility] Last Admin: 02/16/20 12:21 Dose: Not Given Documented by: Metoprolol Tartrate (Lopressor) 5 mg IV Q5M PRN PRN Reason: Heart Rate > 140 bpm Ondansetron HCl (Zofran Odt) 4 mg SL Q4-6HP PRN; Protocol PRN Reason: Nausea And Vomiting Ondansetron HCl (Zofran) 4 mg IV Q4-6HP PRN; Protocol PRN Reason: Nausea And Vomiting Last Admin: 02/15/20 08:03 Dose: 4 mg Documented by: Oxycodone/Acetaminophen (Percocet 5-325 Mg) 0 tab PO Q4HP PRN; Protocol PRN Reason: Per Pain Protocol Last Admin: 02/16/20 08:05 Dose: 2 tab Documented by: Polyethylene Glycol (Miralax) 17 gm PO DAILYP PRN PRN Reason: Constipation Potassium Chloride (Klor-Con) 40 meq PO DAILYP PRN PRN Reason: K+ < 3.5 Last Admin: 02/15/20 13:20 Dose: 40 meq Documented by: Potassium Chloride (Kdur) 10 meq PO QAMCC [facility] Last Admin: 02/16/20 08:05 Dose: 10 meq Documented by: Senna (Senokot) 2 tab PO [facility] Last Admin: 02/15/20 21:20 Dose: 2 tab Documented by: Senna/Docusate Sodium (Senna Plus Tablet) 1 tab PO [facility] Last Admin: 02/15/20 21:18 Dose: 1 tab Documented by: Sitagliptin Phosphate (Januvia) 50 mg PO DAILY [facility] Last Admin: 02/16/20 12:20 Dose: Not Given Documented by: Sodium Biphosphate/Sodium Phosphate (Fleets Adult) 1 dose MN Q3-4DAYS PRN PRN Reason: Constipation Sodium Chloride (Saline Flush) 10 ml IV Q8 [facility] Last Admin: 02/16/20 04:52 Dose: Not Given Documented by: Sodium Chloride (Saline Flush) 10 ml IV Q8 [facility] Last Admin: 02/16/20 05:30 Dose: Not Given Documented by: Sodium Chloride (Sodium Chloride) 2 gm PO TID [facility] Last Admin: 02/16/20 10:58 Dose: 2 gm Documented by: Throat Lozenges (Cepacol) 1 lozenge PO PRN PRN PRN Reason: Sore Throat Last Admin: 02/16/20 01:59 Dose: 1 lozenge Documented by: Warfarin Sodium (Coumadin Per Pharmacy) 1 order PO [facility] Warfarin Sodium (Coumadin) 3 mg PO ONCE@1400 ONE Stop: 02/16/20 14:01 A/P Narrative A/P Narrative: A: *Right hip fracture: s/p ORIF (02/14). Managed per orthopedics. Pain management continue per orthopedics *Euvolemic hyponatremia: 2/2 pain induced ADH release. *DM type II: *HTN: on lisinopril/beta-nae *Hypothyroidism: continue thyroxine *h/o CVA w/right hemiparesis: on aspirin *Anxiety disorder: on alprazolam P: -Postoperative care per orthopedics -Uptitrate basal insulin by 25%, SSI -Freewater fluid restrict/salt tabs/4 hours sodium checks -PT OT/nutrition support -ppx: warfarin per ortho/pharm DNR Time Spent With Patient Time: Total time spent is greater than 50% in coordination of care (as documented) at patient's floor/unit and/or counseling patient: QUALITY Stroke Symptom Onset Unknown: No VTE Deep Vein Thrombosis/Pulmonary Embolism Present on Admission: No
--- NOTE | 2020-02-16 15:20 | Orthopedic Progress Note ---
SUBJECTIVE Subjective Patient information: Note initiated : 02/16/20 at 3:18 pm Service Date, if different from initiated Date: [] Patient: Fiorella Ardon 89 y/o F admitted on 02/15/20 for Fall. Chief Complaint: Pt sleeping on exam. Constitutional Vitals: Vital Signs Temp Pulse Resp BP Pulse Ox 98.9 F 83 18 99/54 95 02/16/20 12:00 02/16/20 12:00 02/16/20 12:00 02/16/20 12:00 02/16/20 12:00 Period Temp Pulse Resp BP Sys/Ta Pulse Ox Last 24 Hr 98.2 F-99.6 F 72-98 16-18 99-166/54-74 92-98 Intake and Output 02/16/20 02/16/20 02/16/20 05:59 13:59 21:59 Intake Total 1600 300 Output Total 350 Balance 1250 300 Intake & Output: Intake & Output 02/16/20 02/16/20 02/16/20 05:59 13:59 21:59 Intake Total 1600 300 Output Total 350 Balance 1250 300 Intake: IV 300 Vancomycin 1,000 mg In Sodium 250 Chloride 0.9% 250 ml @ 250 mls/ hr IV DAILY [facility] Rx#:[id number] Oral 1600 Output: Urine Catheter Amount 350 Other: Urine Appearance Clear Uretheral (Cain) Clear Urine Color Pale Bright Yellow Bright Yellow Uretheral (Cain) Bright Yellow Urine Odor Normal Uretheral (Cain) Normal OBJ DATA Labs CBC & Chem 7: 02/16/20 05:15 02/16/20 11:58 Labs: Abnormal Lab Results 02/16/20 02/16/20 02/16/20 11:58 05:15 05:15 WBC Hct Seg Neutrophils % Lymphocytes % PT 15.7 H INR 1.2 H Sodium 124 L Potassium Chloride Carbon Dioxide BUN Creatinine Glucose Osmolality 275 L Calcium Total Protein 02/16/20 02/16/20 02/15/20 05:15 05:15 10:40 WBC 12.0 H Hct 33.8 L Seg Neutrophils % 80 H Lymphocytes % 10 L PT INR Sodium 124 L 129 L Potassium 2.9 L* Chloride 90 L 91 L Carbon Dioxide 21 L BUN 6 L Creatinine 0.5 L Glucose 309 H 257 H Osmolality Calcium 8.1 L Total Protein 5.7 L 02/15/20 05:30 WBC Hct Seg Neutrophils % 81 H Lymphocytes % 14 L PT INR Sodium Potassium Chloride Carbon Dioxide BUN Creatinine Glucose Osmolality Calcium Total Protein Bandages c/d/i NVI-distal Meds: Medications Acetaminophen (Tylenol) 650 mg PO Q4-6HP PRN; Protocol PRN Reason: Per Pain Protocol/Fever > 101 Alprazolam (Xanax) 0.25 mg PO BID [facility] Last Admin: 02/16/20 08:05 Dose: 0.25 mg Documented by: Aspirin (Aspirin) 81 mg PO DAILY [facility] Last Admin: 02/16/20 12:19 Dose: Not Given Documented by: Bisacodyl (Dulcolax) 10 mg MI Q2-3DAYS PRN PRN Reason: Constipation Bisacodyl (Dulcolax) 10 mg MI Q2-3DAYS PRN PRN Reason: Constipation Calcium/Vitamin D (Calcium W/Vit D3) 500 mg PO BID [facility] Last Admin: 02/16/20 12:20 Dose: Not Given Documented by: Dextrose (Dextrose 50%) 0 ml IV UD PRN PRN Reason: Hypoglycemia Diagnostic Test (Pha) (Accu-Chek) 1 each FS ACHS [facility] Last Admin: 02/16/20 12:17 Dose: 1 each Documented by: Docusate Sodium (Colace) 100 mg PO BID [facility] Last Admin: 02/16/20 12:20 Dose: Not Given Documented by: Duloxetine HCl (Cymbalta) 20 mg PO DAILY [facility] Last Admin: 02/16/20 12:20 Dose: Not Given Documented by: Glucose (Insta-Glucose) 15 gm PO PRN PRN PRN Reason: Hypoglycemia Hydralazine HCl (Apresoline) 10 mg IV Q4-6HP PRN PRN Reason: Hypertension Hydromorphone HCl (Dilaudid) 0 mg IV Q2HP PRN; Protocol PRN Reason: Per Pain Protocol Last Admin: 02/16/20 04:22 Dose: 1 mg Documented by: Sodium Chloride (Sodium Chloride 0.9%) 1,000 mls @ 50 mls/hr IV .Q20H [facility] Stop: 02/17/20 09:59 Last Admin: 02/16/20 14:03 Dose: Not Given Documented by: Acetaminophen (Ofirmev) 650 mg in 65 mls @ 130 mls/hr IV Q6HP PRN; Protocol PRN Reason: Per Pain Protocol/Fever > 101 Magnesium Sulfate (Magnesium Sulfate) 2 gm in 50 mls @ 50 mls/hr IV UD PRN PRN Reason: MG = or < 1.7 Last Infusion: 02/16/20 13:17 Dose: Infused Documented by: Insulin Glargine (Lantus) 12 unit SQ DAILY [facility] Last Admin: 02/16/20 10:57 Dose: 12 unit Documented by: Insulin Human Lispro (Humalog) 0 unit SQ ACHS [facility]; Protocol Last Admin: 02/16/20 12:19 Dose: 2 units Documented by: Iron Carb/Multivit/[place]/Folic Acid (Multivitamin W/Minerals) 1 tab PO DAILY [facility] Last Admin: 02/16/20 12:21 Dose: Not Given Documented by: Levothyroxine Sodium (Synthroid) 75 mcg PO ACB [facility] Last Admin: 02/16/20 08:04 Dose: 75 mcg Documented by: Lisinopril (Zestril) 5 mg PO DAILY [facility] Last Admin: 02/16/20 12:21 Dose: Not Given Documented by: Magnesium Hydroxide (Milk Of Magnesia) 30 ml PO BIDP PRN PRN Reason: Constipation Magnesium Hydroxide (Milk Of Magnesia) 15 ml PO DAILY [facility] Last Admin: 02/16/20 12:21 Dose: Not Given Documented by: Melatonin (Melatonin 3mg Tablet) 3 mg PO HSP PRN PRN Reason: Insomnia Last Admin: 02/15/20 21:18 Dose: 3 mg Documented by: Metoprolol Succinate (Toprol Xl) 25 mg PO DAILY [facility] Last Admin: 02/16/20 12:21 Dose: Not Given Documented by: Metoprolol Tartrate (Lopressor) 5 mg IV Q5M PRN PRN Reason: Heart Rate > 140 bpm Ondansetron HCl (Zofran Odt) 4 mg SL Q4-6HP PRN; Protocol PRN Reason: Nausea And Vomiting Ondansetron HCl (Zofran) 4 mg IV Q4-6HP PRN; Protocol PRN Reason: Nausea And Vomiting Last Admin: 02/15/20 08:03 Dose: 4 mg Documented by: Oxycodone/Acetaminophen (Percocet 5-325 Mg) 0 tab PO Q4HP PRN; Protocol PRN Reason: Per Pain Protocol Last Admin: 02/16/20 08:05 Dose: 2 tab Documented by: Polyethylene Glycol (Miralax) 17 gm PO DAILYP PRN PRN Reason: Constipation Potassium Chloride (Klor-Con) 40 meq PO DAILYP PRN PRN Reason: K+ < 3.5 Last Admin: 02/15/20 13:20 Dose: 40 meq Documented by: Potassium Chloride (Kdur) 10 meq PO QAMCC [facility] Last Admin: 02/16/20 08:05 Dose: 10 meq Documented by: Senna (Senokot) 2 tab PO [facility] Last Admin: 02/15/20 21:20 Dose: 2 tab Documented by: Senna/Docusate Sodium (Senna Plus Tablet) 1 tab PO [facility] Last Admin: 02/15/20 21:18 Dose: 1 tab Documented by: Sitagliptin Phosphate (Januvia) 50 mg PO DAILY [facility] Last Admin: 02/16/20 12:20 Dose: Not Given Documented by: Sodium Biphosphate/Sodium Phosphate (Fleets Adult) 1 dose MI Q3-4DAYS PRN PRN Reason: Constipation Sodium Chloride (Saline Flush) 10 ml IV Q8 [facility] Last Admin: 02/16/20 14:02 Dose: Not Given Documented by: Sodium Chloride (Saline Flush) 10 ml IV Q8 [facility] Last Admin: 02/16/20 14:03 Dose: Not Given Documented by: Sodium Chloride (Sodium Chloride) 2 gm PO TID [facility] Last Admin: 02/16/20 10:58 Dose: 2 gm Documented by: Throat Lozenges (Cepacol) 1 lozenge PO PRN PRN PRN Reason: Sore Throat Last Admin: 02/16/20 01:59 Dose: 1 lozenge Documented by: Warfarin Sodium (Coumadin Per Pharmacy) 1 order PO UD [facility] A/P Assessment and plan (1) Fracture of femoral neck, right, closed: Status: Acute Comment: 1 day s/p R zee hip arthroplasty-stable. Mobilize with PT Time Spent With Patient Time: Total time spent is greater than 50% in coordination of care (as documented) at patient's floor/unit and/or counseling patient:
[2020-02-16] MEDS: SENNOSIDES 1 TABLET PO SCH (20:40)
[2020-02-16] MEDS: SENNOSIDES/DOCUSATE SODIUM 1 TAB TABLET PO SCH (20:41)
[2020-02-17] MEDS: oxyCODONE/APAP 5/325MG TABLET PO PRN ×3 (00:50→11:19)
[2020-02-17] MEDS: 0.9 % SODIUM CHLORIDE 10 ML SYRINGE IV SCH ×6 (05:59→21:33)
[2020-02-17] MEDS: LEVOTHYROXINE 75 MCG TABLET PO SCH (07:28)
[2020-02-17] MEDS: INSULIN LISPRO 1 UNIT/0.01 ML UNIT SQ SCH ×4 (07:28→21:31)
[2020-02-17] MEDS: POTASSIUM CHLORIDE 10 MEQ TABLET PO SCH (07:31)
--- NOTE | 2020-02-17 07:57 | Internal Med Progress Note ---
SUBJECTIVE Subjective Patient information: Note initiated : 02/17/20 at 7:54 am Service Date, if different from initiated Date: [] Patient: Fiorella Ardon 89 y/o F admitted on 02/15/20 for Fall. Chief Complaint: [] Interval history: [facility] Complaint: Ms. Ardon is a 89 year old F with a history of CVA with right-sided hemiparesis and currently residing at [facility]. She also carries a history of DM type II/HTN/hypothyroidism. She sustained a ground-level non- syncopal fall last evening while she was transferring from wheelchair to recliner landing on the floor on the right side. She was subsequently evaluated at [facility]. Imaging revealed right hip fracture. Oorthopedic was consulted and requested transfer to [facility] for operative intervention. Patient was started on pain medications. She also found blood sugars over 300. On arrival patient appears confused, in significant pain and under effect of opioids. She however is hemodynamically stable. Denies chest pain, loss of consciousness however was unable to provide a detailed history prior to fall or precipitating events. Reviewed labs and imaging from [facility]. 02/15-patient postop day 1. No overnight events. Remains very anxious. Sodium down to 124. 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 Await urine and serum osmolality. Check for hourly sodium start salt tabs/free water restriction. Continue postop care per orthopedics. Potassium at 4.9, blood sugar 309, increase glargine by 25%. 8 Tired this morning. Had urine retention and was straight cath earlier this morning. Otherwise no issues overnight. Pending follow-up labs. Review of Systems: denies headache/fever/chills/nausea/vomiting/chest or abdominal p ain/cough/dyspnea/diarrhea. Otherwise see above. Constitutional Vitals: Vital Signs Temp Pulse Resp BP Pulse Ox 99 F 60 22 157/69 98 02/17/20 07:09 02/17/20 07:09 02/17/20 07:09 02/17/20 07:09 02/17/20 07:54 Period Temp Pulse Resp BP Sys/Ta Pulse Ox Last 24 Hr 98.2 F-99.6 F 60-98 16-22 99-166/50-74 89-99 Intake and Output 02/16/20 02/17/2020 21:59 05:59 13:59 Intake Total 1304 200 Output Total 390 2250 Balance 914 -2050 Weight 49.215 kg Intake & Output: Intake & Output 02/16/20 02/17/20 02/17/20 21:59 05:59 13:59 Intake Total 1304 200 Output Total 390 2250 Balance 914 -2050 Weight 49.215 kg Intake: IV 954 Sodium Chloride 0.9% 1,000 ml @ 954 50 mls/hr IV .Q20H [facility] Rx#: [id number] Oral 350 200 Output: Urine Catheter Amount 390 2100 Uretheral (Cain) 1050 Void Amount 150 Other: Meal Breakfast Percent of Meal Consumed 25% Urine Appearance Clear Uretheral (Cain) Clear Urine Color Bright Yellow Bright Yellow Uretheral (Cain) Dark Yellow Urine Odor Normal Normal Exam: General: Awake, No acute Distress, appears tired Eyes/N/T: EOMI, Head/Neck: neck supple, CV: RRR, 2/6 SM Pulm: Clear b/l, no wheezing/rhonchi/rales Abd: soft, nontender, +BS x4 Ext: no clubbing/cyanosis/edema, right hip in dressings Neuro: no focal deficits, moves all extremities, Skin: warm/dry OBJ DATA Labs CBC & Chem 7: 02/17/20 06:33 02/16/20 16:00 Labs: Abnormal Lab Results 02/16/20 02/16/20 02/16/20 16:00 11:58 05:15 WBC Hct Seg Neutrophils % Lymphocytes % PT INR Sodium 128 L 124 L Potassium Chloride Carbon Dioxide BUN Creatinine Glucose Osmolality 275 L Calcium Total Protein 02/16/20 02/16/20 02/16/20 05:15 05:15 05:15 WBC 12.0 H Hct 33.8 L Seg Neutrophils % 80 H Lymphocytes % 10 L PT 15.7 H INR 1.2 H Sodium 124 L Potassium Chloride 90 L Carbon Dioxide 21 L BUN Creatinine Glucose 309 H Osmolality Calcium Total Protein 02/15/20 02/15/20 10:40 05:30 WBC Hct Seg Neutrophils % 81 H Lymphocytes % 14 L PT INR Sodium 129 L Potassium 2.9 L* Chloride 91 L Carbon Dioxide BUN 6 L Creatinine 0.5 L Glucose 257 H Osmolality Calcium 8.1 L Total Protein 5.7 L Meds: Medications Acetaminophen (Tylenol) 650 mg PO Q4-6HP PRN; Protocol PRN Reason: Per Pain Protocol/Fever > 101 Alprazolam (Xanax) 0.25 mg PO BID [facility] Last Admin: 02/16/20 20:40 Dose: 0.25 mg Documented by: Aspirin (Aspirin) 81 mg PO DAILY [facility] Last Admin: 02/16/20 12:19 Dose: Not Given Documented by: Bisacodyl (Dulcolax) 10 mg SD Q2-3DAYS PRN PRN Reason: Constipation Calcium/Vitamin D (Calcium W/Vit D3) 500 mg PO BID [facility] Last Admin: 02/16/20 20:40 Dose: 500 mg Documented by: Dextrose (Dextrose 50%) 0 ml IV UD PRN PRN Reason: Hypoglycemia Diagnostic Test (Pha) (Accu-Chek) 1 each FS ACHS [facility] Last Admin: 02/17/20 07:28 Dose: 1 each Documented by: Docusate Sodium (Colace) 100 mg PO BID [facility] Last Admin: 02/16/20 20:40 Dose: 100 mg Documented by: Duloxetine HCl (Cymbalta) 20 mg PO DAILY [facility] Last Admin: 02/16/20 12:20 Dose: Not Given Documented by: Glucose (Insta-Glucose) 15 gm PO PRN PRN PRN Reason: Hypoglycemia Hydralazine HCl (Apresoline) 10 mg IV Q4-6HP PRN PRN Reason: Hypertension Hydromorphone HCl (Dilaudid) 0 mg IV Q2HP PRN; Protocol PRN Reason: Per Pain Protocol Last Admin: 02/16/20 20:41 Dose: 1 mg Documented by: Sodium Chloride (Sodium Chloride 0.9%) 1,000 mls @ 50 mls/hr IV .Q20H [facility] Stop: 02/17/20 09:59 Last Admin: 02/16/20 16:22 Dose: 50 mls/hr Documented by: Acetaminophen (Ofirmev) 650 mg in 65 mls @ 130 mls/hr IV Q6HP PRN; Protocol PRN Reason: Per Pain Protocol/Fever > 101 Magnesium Sulfate (Magnesium Sulfate) 2 gm in 50 mls @ 50 mls/hr IV UD PRN PRN Reason: MG = or < 1.7 Last Infusion: 02/16/20 13:17 Dose: Infused Documented by: Insulin Glargine (Lantus) 12 unit SQ DAILY [facility] Last Admin: 02/16/20 10:57 Dose: 12 unit Documented by: Insulin Human Lispro (Humalog) 0 unit SQ [facility]; Protocol Last Admin: 02/17/20 07:28 Dose: Not Given Documented by: Iron Carb/Multivit/[employer]/Folic Acid (Multivitamin W/Minerals) 1 tab PO DAILY [facility] Last Admin: 02/16/20 12:21 Dose: Not Given Documented by: Levothyroxine Sodium (Synthroid) 75 mcg PO ACB [facility] Last Admin: 02/17/20 07:28 Dose: 75 mcg Documented by: Lisinopril (Zestril) 5 mg PO DAILY [facility] Last Admin: 02/16/20 12:21 Dose: Not Given Documented by: Magnesium Hydroxide (Milk Of Magnesia) 30 ml PO BIDP PRN PRN Reason: Constipation Magnesium Hydroxide (Milk Of Magnesia) 15 ml PO DAILY [facility] Last Admin: 02/16/20 12:21 Dose: Not Given Documented by: Melatonin (Melatonin 3mg Tablet) 3 mg PO HSP PRN PRN Reason: Insomnia Last Admin: 02/15/20 21:18 Dose: 3 mg Documented by: Metoprolol Succinate (Toprol Xl) 25 mg PO DAILY [facility] Last Admin: 02/16/20 12:21 Dose: Not Given Documented by: Metoprolol Tartrate (Lopressor) 5 mg IV Q5M PRN PRN Reason: Heart Rate > 140 bpm Ondansetron HCl (Zofran Odt) 4 mg SL Q4-6HP PRN; Protocol PRN Reason: Nausea And Vomiting Ondansetron HCl (Zofran) 4 mg IV Q4-6HP PRN; Protocol PRN Reason: Nausea And Vomiting Last Admin: 02/15/20 08:03 Dose: 4 mg Documented by: Oxycodone/Acetaminophen (Percocet 5-325 Mg) 0 tab PO Q4HP PRN; Protocol PRN Reason: Per Pain Protocol Last Admin: 02/17/20 05:47 Dose: 1 tab Documented by: Polyethylene Glycol (Miralax) 17 gm PO DAILYP PRN PRN Reason: Constipation Potassium Chloride (Klor-Con) 40 meq PO DAILYP PRN PRN Reason: K+ < 3.5 Last Admin: 02/15/20 13:20 Dose: 40 meq Documented by: Potassium Chloride (Kdur) 10 meq PO QAMCC [facility] Last Admin: 02/17/20 07:31 Dose: 10 meq Documented by: Senna (Senokot) 2 tab PO [facility] Last Admin: 02/16/20 20:40 Dose: 2 tab Documented by: Senna/Docusate Sodium (Senna Plus Tablet) 1 tab PO [facility] Last Admin: 02/16/20 20:41 Dose: Not Given Documented by: Sitagliptin Phosphate (Januvia) 50 mg PO DAILY [facility] Last Admin: 02/16/20 12:20 Dose: Not Given Documented by: Sodium Biphosphate/Sodium Phosphate (Fleets Adult) 1 dose SD Q3-4DAYS PRN PRN Reason: Constipation Sodium Chloride (Saline Flush) 10 ml IV Q8 [facility] Last Admin: 02/17/20 05:59 Dose: Not Given Documented by: Sodium Chloride (Saline Flush) 10 ml IV Q8 [facility] Last Admin: 02/17/20 06:00 Dose: Not Given Documented by: Sodium Chloride (Sodium Chloride) 2 gm PO TID [facility] Last Admin: 02/16/20 20:40 Dose: 2 gm Documented by: Throat Lozenges (Cepacol) 1 lozenge PO PRN PRN PRN Reason: Sore Throat Last Admin: 02/16/20 01:59 Dose: 1 lozenge Documented by: Warfarin Sodium (Coumadin Per Pharmacy) 1 order PO UD [facility] A/P Assessment and plan (1) Fracture of femoral neck, right, closed: Status: Acute Comment: 1 day s/p R zee hip arthroplasty-stable. Mobilize with PT Narrative A/P Narrative: A: *Right hip fracture: s/p ORIF (02/14). Managed per orthopedics. Pain management continue per orthopedics *Euvolemic hyponatremia: 2/2 pain induced ADH release. *DM type II: *HTN: on lisinopril/beta-nae *Hypothyroidism: continue thyroxine *h/o CVA w/right hemiparesis: on aspirin *Anxiety disorder: on alprazolam *Urinary retention: P: -Postoperative care per orthopedics -Uptitrated basal insulin by 25%, SSI -Freewater fluid restrict/salt tabs/sodium checks -PT OT/nutrition support -prn bladder scan and straight cath -ppx: warfarin per ortho/pharm DNR Time Spent With Patient Time: Total time spent is greater than 50% in coordination of care (as documented) at patient's floor/unit and/or counseling patient: QUALITY Stroke Symptom Onset Unknown: No VTE Deep Vein Thrombosis/Pulmonary Embolism Present on Admission: No
[2020-02-17 08:04] LABS: INR 1.2 (0.9-1.1); Prothrombin Time 15.8 sec (11.9-14.5)
[2020-02-17 08:18] LABS: Hematocrit 33.3 % (34.1-44.9); Hemoglobin 11.3 g/dL (11.2-15.7); Mean Cell Volume 85.6 fL (80.0-100.0); Mean Corpuscular HGB Conc 33.9 g/dL (31.0-36.0); Mean Platelet Volume 9.2 fL (7.4-10.4); Platelet Count 289 K/mcL (140-440); RBC 3.89 M/mcL (3.59-5.38); Red Cell Distribution Width 13.2 % (11.5-14.5); WBC 8.2 K/mcL (4.50-11.00)
[2020-02-17 08:42] LABS: ALT/SGPT 11 U/l (0-40); AST/SGOT 23 U/l (0-37); Albumin 3.2 gm/dL (3.2-5.2); Albumin/Globulin Ratio 1.5 (1.0-2.3); Alkaline Phosphatase 68 U/L (39-117); Bilirubin,Direct < 0.2 mg/dL (0.0-0.3); Bilirubin,Total 0.4 mg/dL (0.0-1.0); Blood Urea Nitrogen 11 mg/dl (8-23); Calcium 8.2 mg/dl (8.6-10.4); Carbon Dioxide 23 mmol/L (22-30); Chloride 96 mmol/L (96-108); Globulin 2.2 gm/dL (2.2-3.7); Glomerular Filtration Rate 94; Glucose 90 mg/dL (70-105); Lactate Dehydrogenase 205 U/L (94-250); Phosphorous 2.5 mg/dL (2.7-4.5); Triglycerides 105 mg/dl (<150); Uric Acid 1.8 mg/dL (2.5-8.0)
[2020-02-17 08:56] LABS: Eosinophils % (Manual) 1 % (0-7); Lymphocytes % 29 % (15-49); Monocytes % (Manual) 4 % (1-12); Platelet Estimate NORMAL (NORMAL); RBC Morphology NORMAL (NORMAL); Segmented Neutrophils % 66 % (38-78)
[2020-02-17] MEDS: SODIUM CHLORIDE 1 GM TABLET PO SCH ×3 (11:17→21:31)
[2020-02-17] MEDS: METOPROLOL SUCCINATE 25 MG TAB.XL.24H PO SCH (11:18)
[2020-02-17] MEDS: CALCIUM W/VIT D3 500 MG TABLET PO SCH ×2 (11:18→21:31)
[2020-02-17] MEDS: LISINOPRIL 5 MG TABLET PO SCH (11:18)
[2020-02-17] MEDS: DOCUSATE SODIUM 100 MG CAPSULE PO SCH ×2 (11:18→21:31)
[2020-02-17] MEDS: sitaGLIPtin 50 MG TABLET PO SCH (11:19)
[2020-02-17] MEDS: MULTIVIT,THER IRON,CA,FA & MIN 1 TABLET PO SCH ×2 (11:19→17:44)
[2020-02-17] MEDS: ASPIRIN 81 MG TAB.CHEW PO SCH (11:19)
[2020-02-17] MEDS: DULoxetine 20 MG CAPSULE PO SCH (11:20)
[2020-02-17] MEDS: MAGNESIUM HYDROXIDE 30 ML ORAL.SUSP PO SCH (11:21)
[2020-02-17] MEDS: ALPRAZolam 0.25 MG TABLET PO SCH ×2 (11:21→21:31)
[2020-02-17] MEDS: INSULIN GLARGINE, HUMAN 1 UNIT/0.01 ML SQ SCH (11:21)
--- NOTE | 2020-02-17 11:50 | Discharge Summary ---
Discharge Provider Provider Patient information: Note initiated : 02/17/20 at 11:47 am Service Date, if different from initiated Date: [] Patient: Fiorella Ardon 89 y/o F admitted on 02/15/20 for Fall. Chief Complaint: [] Date of admission: 02/15/20 00:43 Discharge date: 02/18/20 Primary care physician: Elieser Elias Consults: 02/15/20 01:12 Consult to Physician [CONS] Routine Comment: Consulting Provider: Bayron Cyr Reason For Exam: Physician to Consult Discharge Meds Discharge Medications Home Medications aspirin 81 mg tablet 81 mg PO QDAY 07/24/16 [History Confirmed 02/15/20 Last Taken 02/14/20 09:00] blood sugar diagnostic 07/24/16 [History Confirmed 01/31/17 Last Taken Unknown] blood-glucose meter 07/24/16 [History Confirmed 01/31/17 Last Taken Unknown] insulin glargine 100 unit/mL subcutaneous solution See Rx Instructions SUB-Q QAM ml 07/24/16 [History Confirmed 02/15/20 Last Taken 02/14/20 08:00] lancets 30 gauge 07/24/16 [History Confirmed 01/31/17 Last Taken Unknown] levothyroxine 75 mcg tablet 75 mcg PO QDAY 07/24/16 [History Confirmed 02/15/20 Last Taken 02/14/20 07:00] nitroglycerin 0.4 mg sublingual tablet 0.4 mg SUBLINGUAL .COMPLEX PRN 07/24/16 [History Confirmed 02/15/20 Last Taken Unknown] potassium chloride 10 mEq tablet,extended release 10 meq PO QDAY 07/24/16 [History Confirmed 02/15/20 Last Taken 02/14/20 08:00] conjugated estrogens 0.625 mg/gram vaginal cream 1 applic VAGINAL .COMPLEX #30 g 07/26/17 [Rx Confirmed 02/15/20 Last Taken 02/10/20 20:00] Citracal-D3 Plus Heart Health 1 tab PO BID 02/15/20 [History Confirmed 02/15/20 Last Taken 02/14/20 17:00] Milk of Magnesia 15 ml PO DAILY 02/15/20 [History Confirmed 02/15/20 Last Taken 02/14/20 08:00] Thermotabs 1 tab PO DAILY 02/15/20 [History Confirmed 02/15/20 Last Taken 02/14/20 08:00] alprazolam 0.25 mg PO BID 02/15/20 [History Confirmed 02/15/20 Last Taken 02/14/20 01:45] calcitonin (salmon) See Rx Instructions .ROUTE .COMPLEX 02/15/20 [History Confirmed 02/18/20 Last Taken Unknown] duloxetine 20 mg PO DAILY 02/15/20 [History Confirmed 02/15/20 Last Taken 02/14/20 08:00] glipizide 2.5 mg PO DAILY 02/15/20 [History Confirmed 02/15/20 Last Taken 02/14/20 08:00] lisinopril 5 mg PO DAILY 02/15/20 [History Confirmed 02/15/20 Last Taken 02/14/20 08:00] metoprolol succinate 25 mg PO QDAY 02/15/20 [History Confirmed 02/15/20 Last Taken 02/14/20 08:00] oxycodone-acetaminophen 1 tab PO Q4HP PRN #20 tab 02/17/20 [Rx Last Taken Unknown] COURSE Hospital Course Hospital course: Ms. Ardon is a 89 year old F with a history of CVA with right- sided hemiparesis and currently residing at [facility]. She also carries a history of DM type II/HTN/hypothyroidism. She sustained a ground-level non-syncopal fall last evening while she was transferring from wheelchair to recliner landing on the floor on the right side. She was subsequently evaluated at [facility]. Imaging revealed right hip fracture. Oorthopedic was consulted and requested transfer to [facility] for operative intervention. Patient was started on pain medications. She also found blood sugars over 300. On arrival patient appears confused, in significant pain and under effect of opioids. She however is hemodynamically stable. Denies chest pain, loss of consciousness however was unable to provide a detailed history prior to fall or precipitating events. Reviewed labs and imaging from [facility]. 02/15-patient postop day 1. No overnight events. Remains very anxious. Sodium down to 124. 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 Await urine and serum osmolality. Check for hourly sodium start salt tabs/free water restriction. Continue postop care per orthopedics. Potassium at 4.9, blood sugar 309, increase glargine by 25%. 02/16 Tired this morning.Had urine retention and was straight cath earlier this morning. Otherwise no issues overnight. Pending follow-up labs. prn straigth caths, if continues to need then place martinez and f/u with Urology 02/17 Patient still with urinary retention required [facility] placement. Other than that no other overnight events or new complaints. Patient will need follow-up with urology A: *Right hip fracture: s/p ORIF (02/14). Managed per orthopedics. Pain management continue per orthopedics *Euvolemic hyponatremia: 2/2 pain induced ADH release. 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0 MCHC 33.9 RDW 13.2 Plt Count 289 MPV 9.2 Total Counted 100 Seg Neutrophils % 66 Band Neutrophils % Not Reportable Lymphocytes % 29 Monocytes % (Manual) 4 Eosinophils % (Manual) 1 Platelet Estimate Normal RBC Morphology Normal PT 15.8 H INR 1.2 H Sodium 131 L Potassium 3.7 Chloride 96 Carbon Dioxide 23 Anion Gap 12.0 BUN 11 Creatinine 0.4 L GFR Calculation 94 Glucose 90 Uric Acid 1.8 L Calcium 8.2 L Phosphorus 2.5 L Magnesium 1.8 Total Bilirubin 0.4 Direct Bilirubin < 0.2 GGT 18 AST 23 ALT 11 Alkaline Phosphatase 68 Lactate Dehydrogenase 205 Total Protein 5.4 L Albumin 3.2 Globulin 2.2 Albumin/Globulin Ratio 1.5 Triglycerides 105 Urine Osmolality 02/16/20 02/16/20 02/16/20 16:00 15:58 11:58 WBC RBC Hgb Hct MCV MCH MCHC RDW Plt Count MPV Total Counted Seg Neutrophils % Band Neutrophils % Lymphocytes % Monocytes % (Manual) Eosinophils % (Manual) Platelet Estimate RBC Morphology PT INR Sodium 128 L 124 L Potassium Chloride Carbon Dioxide Anion Gap BUN Creatinine GFR Calculation Glucose Uric Acid Calcium Phosphorus Magnesium Total Bilirubin Direct Bilirubin GGT AST ALT Alkaline Phosphatase Lactate Dehydrogenase Total Protein Albumin Globulin Albumin/Globulin Ratio Triglycerides Urine Osmolality 222 Discharge Plan Patient/Caregiver Discharge Instructions Activity: as per physical therapy Diet: Consistent Carbohydrate Activity Restrictions/Additional Instructions: 1500cc/day fluid restrict - adjust per f/u sodium with PCP Referral to see urologist in 3 to 10 days for urinary retention Prescriptions: New oxycodone-acetaminophen 5-325 mg Tablet 1 tab PO Q4HP PRN (Reason: Per Pain Protocol) Qty: 20 RF: 0 Continued insulin glargine [Lantus U-100 Insulin] 100 unit/mL solution See Rx Instructions SUB-Q QAM RF: 0 nitroglycerin [Nitrostat] 0.4 mg tablet, sublingual 0.4 mg SUBLINGUAL .COMPLEX PRN (Reason: Chest Pain) RF: 0 aspirin 81 mg tablet 81 mg PO QDAY RF: 0 levothyroxine 75 mcg tablet 75 mcg PO QDAY RF: 0 (DME) blood-glucose meter kit See Dose Instructions .ROUTE .MEDSUPPLY RF: 0 (DME) blood sugar diagnostic [Glucocard Vital Test Strips] strip See Dose Instructions .ROUTE .MEDSUPPLY RF: 0 (DME) lancets [TRUEplus Lancets] 30 gauge misc See Dose Instructions .ROUTE .MEDSUPPLY RF: 0 potassium chloride [K-Tab] 10 mEq tablet extended release 10 meq PO QDAY RF: 0 glipizide 5 mg tablet 2.5 mg PO DAILY RF: 0 alprazolam 0.25 mg tablet 0.25 mg PO BID RF: 0 calcitonin (salmon) 200 unit/actuation spray,non-aerosol See Rx Instructions .ROUTE .COMPLEX RF: 0 Citracal-D3 Plus Heart Health 1 tab PO BID RF: 0 Milk of Magnesia 15 ml PO DAILY RF: 0 Thermotabs 1 tab PO DAILY RF: 0 duloxetine 20 mg PO DAILY RF: 0 lisinopril 5 mg PO DAILY RF: 0 metoprolol succinate 25 mg Tablet Extended Release 24 Hr 25 mg PO QDAY RF: 0 conjugated estrogens [Premarin] 0.625 mg/gram cream 1 applic VAGINAL .COMPLEX Qty: 30 RF: 12 Discontinued metoprolol tartrate 25 mg tablet 25 mg PO QDAY RF: 0 Other Ambulatory Orders: Basic Metabolic Panel (Routine) Timeframe: 1 Week Facility: [facility] - Location: Laboratory Ordered By: Jason Guardado OT Discharge Order (Routine) Location: None Selected Ordered By: Jason Guardado Physical Therapy at Discharge - General (Routine) Location: None Selected Ordered By: Jason Guardado Follow Up Plan Follow up with: Bayron Cyr MD [Physician] - Elieser Elias MD [Primary Care Provider] - Patient Disposition: Xfer SNF Rehab Potential: Fair I certify that the patient requires SNF services: Yes Overall status at discharge: patient is progressing back to baseline Discharge Orders: Discharge Order (Routine); Ordered 02/18/20 Ordered By: Jason Guardado QUALITY VTE Deep Vein Thrombosis/Pulmonary Embolism Present on Admission: No
[2020-02-17] MEDS ORDERED: WARFARIN 2 MG TABLET PO ONE (14:00)
[2020-02-17] MEDS: SENNOSIDES/DOCUSATE SODIUM 1 TAB TABLET PO SCH (21:32)
[2020-02-17] MEDS: SENNOSIDES 1 TABLET PO SCH (21:32)
[2020-02-18] MEDS: oxyCODONE/APAP 5/325MG TABLET PO PRN (01:56)
[2020-02-18] MEDS: 0.9 % SODIUM CHLORIDE 10 ML SYRINGE IV SCH ×2 (04:54→04:55)
[2020-02-18 08:07] LABS: ALT/SGPT 11 U/l (0-40); AST/SGOT 17 U/l (0-37); Albumin 2.9 gm/dL (3.2-5.2); Albumin/Globulin Ratio 1.3 (1.0-2.3); Alkaline Phosphatase 68 U/L (39-117); Bilirubin,Direct < 0.2 mg/dL (0.0-0.3); Bilirubin,Total 0.4 mg/dL (0.0-1.0); Blood Urea Nitrogen 11 mg/dl (8-23); Calcium 8.5 mg/dl (8.6-10.4); Carbon Dioxide 27 mmol/L (22-30); Chloride 97 mmol/L (96-108); Globulin 2.3 gm/dL (2.2-3.7); Glomerular Filtration Rate 94; Glucose 115 mg/dL (70-105); Lactate Dehydrogenase 176 U/L (94-250); Triglycerides 76 mg/dl (<150)
[2020-02-18 08:15] LABS: Uric Acid 1.4 mg/dL (2.5-8.0)
[2020-02-18] MEDS: POTASSIUM CHLORIDE 10 MEQ TABLET PO SCH (08:51)
[2020-02-18] MEDS: LEVOTHYROXINE 75 MCG TABLET PO SCH (08:51)
[2020-02-18] MEDS: INSULIN LISPRO 1 UNIT/0.01 ML UNIT SQ SCH ×2 (08:56→13:36)
[2020-02-18 11:08] LABS: INR 1.4 (0.9-1.1); Prothrombin Time 17.6 sec (11.9-14.5)
[2020-02-18] MEDS: MAGNESIUM HYDROXIDE 30 ML ORAL.SUSP PO SCH (13:31)
[2020-02-18] MEDS: SODIUM CHLORIDE 1 GM TABLET PO SCH (13:32)
[2020-02-18] MEDS: ASPIRIN 81 MG TAB.CHEW PO SCH (13:32)
[2020-02-18] MEDS: CALCIUM W/VIT D3 500 MG TABLET PO SCH (13:32)
[2020-02-18] MEDS: DOCUSATE SODIUM 100 MG CAPSULE PO SCH (13:33)
[2020-02-18] MEDS: METOPROLOL SUCCINATE 25 MG TAB.XL.24H PO SCH (13:34)
[2020-02-18] MEDS: ALPRAZolam 0.25 MG TABLET PO SCH (13:34)
[2020-02-18] MEDS: MULTIVIT,THER IRON,CA,FA & MIN 1 TABLET PO SCH (13:34)
[2020-02-18] MEDS: LISINOPRIL 5 MG TABLET PO SCH (13:34)
[2020-02-18] MEDS: INSULIN GLARGINE, HUMAN 1 UNIT/0.01 ML SQ SCH (13:35)
[2020-02-18] MEDS: sitaGLIPtin 50 MG TABLET PO SCH (13:35)
[2020-02-18] MEDS ORDERED: WARFARIN 5 MG TABLET PO ONE (15:00)
[2020-02-18] MEDS: DULoxetine 20 MG CAPSULE PO SCH (15:41)
== END 2020-02-18 13:50 | DRG 470 ==
LOC: MEDSUR 02-15 00:43
PROVIDERS: ADMIT Internal Medicine; ATTEND Internal Medicine